=== PATIENT | male | born 1960 | race Caucasian/White ===

== ENCOUNTER 2021-06-16 07:38 | Emergency (ER) | payer OTHER ==
[2021-06-16 07:50] VITALS: BP 143/84; PULSE 69; TEMP 98; BMI 27.3
[2021-06-16] MEDS ORDERED: DIPHTH,PERTUSS(ACELL),TET 0.5 ML DISP.SYRIN IM ONE ×2 (08:41→09:22)
== END 2021-06-16 09:32 | disposition home or self-care (01) ==
LOC: JER 07:38
PROC: 0HQFXZZ Repair Right Hand Skin, External Approach (ICD-10-PCS; principal; 2021-06-16)
PROC: 3E0234Z Introduction of Serum, Toxoid and Vaccine into Muscle, Percutaneous Approach (ICD-10-PCS; 2021-06-16)
DX: S61.211A Laceration without foreign body of left index finger without damage to nail, initial encounter (principal); W29.3XXA Contact with powered garden and outdoor hand tools and machinery, initial encounter; Y92.9 Unspecified place or not applicable
CPT/HCPCS: 12001-25; 90471; 90715; 99283-25

== ENCOUNTER 2024-10-26 19:11 | Emergency (ER) | payer MEDICARE, OTHER ==
[2024-10-26 19:16] VITALS: BP 107/64; RESP 18; TEMP 97.9; BMI 26.3
[2024-10-26] MEDS ORDERED: ACETAMINOPHEN 1000 MG/100 ML BAG IVPB ONE (19:35)
[2024-10-26] MEDS ORDERED: ASPIRIN 81 MG CHEWABLE TABLETS ONE ×2 (19:46→20:20)
[2024-10-26] MEDS ORDERED: HEPARIN NA (PORCINE) 5,000 UNITS/ML 1ML VIAL IVPUSH PRN ×2 (19:48)
[2024-10-26] MEDS: ASPIRIN 81 MG CHEWABLE TABLETS PO ONE (20:01)
[2024-10-26 20:02] LABS: ABSOLUTE IMMATURE GRANULOCYTES 0.04 x10^3/uL (0.0-0.031); BASOPHILS # 0.04 x10^3/uL (0.01-0.08); EOSINOPHIL % 2.9 % (0.8-7.0); EOSINOPHILS # 0.25 x10^3/uL (0.04-0.54); HEMATOCRIT 44.8 % (40.1-51.0); HEMOGLOBIN 15.2 g/dL (13.7-17.5); MCHC 33.9 g/dl (32.3-36.5); MEAN CELL VOLUME 87.3 fl (79.0-92.2); MEAN PLT VOLUME 9.6 fl (9.4-12.4); MONOCYTE % 5.9 % (5.3-12.2); PLATELET COUNT # 264 x10^3/uL (163-337); RDW 12.4 % (12.2-16.4)
[2024-10-26] MEDS ORDERED: ACETAMINOPHEN INJECTION 100 ML ONE (20:03)
[2024-10-26] MEDS ORDERED: HEPARIN INFUSION - 25,000 UNITS/500 ML INFUS.BAG IVPB ONE (20:04)
[2024-10-26] MEDS ORDERED: HEPARIN NA (PORCINE) 5,000 UNITS/ML 1ML VIAL ONE (20:04)
[2024-10-26 20:13] LABS: INR 1.01 (0.83-1.09)
[2024-10-26] MEDS ORDERED: ASPIRIN 81 MG CHEWABLE TABLETS PO ONE (20:14)
[2024-10-26 20:16] LABS: ACTIVATED PTT 25.8 SECONDS (25.2-36.5)
[2024-10-26] MEDS: HEPARIN NA (PORCINE) 5,000 UNITS/ML 1ML VIAL IVPUSH ONE (20:18)
[2024-10-26] MEDS: HEPARIN INFUSION - 25,000 UNITS/500 ML INFUS.BAG IVPB SCH (20:18)
[2024-10-26 20:22] LABS: POTASSIUM 4.3 mmol/L (3.5-5.1)
[2024-10-26 20:24] LABS: CALCIUM 8.8 mg/dL (8.5-10.1)
[2024-10-26 20:25] LABS: ALBUMIN 3.6 g/dl (3.4-5.0); BLOOD UREA NITROGEN 17.1 mg/dL (7-18)
[2024-10-26 20:29] LABS: BILIRUBIN,TOTAL 0.6 mg/dL (0.2-1); TOT PROT 6.6 g/dl (6.4-8.2)
[2024-10-26 20:44] VITALS: PULSE 58
== END 2024-10-26 20:30 | disposition short-term general hospital (02) ==
LOC: JER 19:11
PROC: 3E033GC Introduction of Other Therapeutic Substance into Peripheral Vein, Percutaneous Approach (ICD-10-PCS; principal; 2024-10-26)
DX: I21.3 ST elevation (STEMI) myocardial infarction of unspecified site (principal); R07.2 Precordial pain; M79.602 Pain in left arm; R61 Generalized hyperhidrosis
CPT/HCPCS: 36415; 71045-TC-FY; 80053; 84484; 85025; 85610; 85730; 86850; 86900; 86901; 93005; 93010; 96374; 99285-25; J1644